=== PATIENT | female | born 1975 | race Caucasian/White ===

== ENCOUNTER 2024-04-22 03:49 | Outpatient (CLI) | payer BC, SELFPAY ==
[2024-04-24 10:11] LABS: TB Interpretation Negative (Negative); TB2 Ag minus Nil 0.01 IU/mL
== END 2024-04-22 03:50 | disposition home or self-care (01) ==
LOC: LBO 03:49
PROVIDERS: PCP Internal Medicine; Visit Provider Dermatology
DX: L40.0 Psoriasis vulgaris (principal); Z79.899 Other long term (current) drug therapy
CPT/HCPCS: 36415; 86480

== ENCOUNTER 2024-04-23 02:12 | Outpatient (CLI) | payer BC, SELFPAY ==
--- NOTE | 2024-04-23 12:46 | DI.MAMMO_ITS ---
Exam(s) MAMMO SCREENING EXAM: MAMMO SCREENING CLINICAL HISTORY: Baseline screening TECHNIQUE: Mammograms were interpreted according to the usual protocol including computer analysis w [employer] CAD system, tomosynthesis and C-view imaging. COMPARISON: No exams were available for comparison. Baseline examination. FINDINGS: The breasts are composed of scattered fibroglandular densities, Breast Density category B. No suspicious masses or suspicious microcalcifications are seen. No skin thickening or abnormal axillary lymph nodes are seen. IMPRESSION: BI-RADS Category 1, Negative mammogram Yearly screening mammography is recommended. Breast Density - Category B, scattered fibroglandular densities. A negative radiographic report should not delay biopsy if a dominant or clinically suspicious mass is present. Up to ten percent of cancers are not identified on mammography. A negative report may reinforce clinical impression. Adenosis and dense breasts may obscure an underlying neoplasm. False positive reports average 6 to 10%. Patient will receive a letter notifying them of these results.
== END 2024-04-23 02:32 ==
LOC: DI 02:12
PROVIDERS: PCP Internal Medicine; Visit Provider Nurse Practitioner Family
DX: Z12.31 Encounter for screening mammogram for malignant neoplasm of breast (principal); R92.323 Mammographic fibroglandular density, bilateral breasts
CPT/HCPCS: 77063; 77067

== ENCOUNTER 2025-01-28 17:01 | Outpatient (REF) | payer BC, SELFPAY | END 2025-01-28 17:02 | disposition home or self-care (01) | LOC: LBN 17:01 | PROVIDERS: PCP Nurse Practitioner Family; Visit Provider Obstetrics & Gynecology | DX: Z12.4 Encounter for screening for malignant neoplasm of cervix (principal) | CPT/HCPCS: 88142; 87624 ==

== ENCOUNTER 2025-02-25 07:38 | Day surgery (SDC) | payer BC, SELFPAY ==
[2025-02-25 07:50] VITALS: BP 110/71; PULSE 71; RESP 18; TEMP 36.4; O2SAT 97
[2025-02-25] MEDS: Lactated Ringers 1,000 ML 80 ML IV (08:18)
--- NOTE | 2025-02-25 08:48 | W.ANESPRE ---
General Info Date of Service Date Performed: 02/25/25 Height: 5 ft 4 in Weight: 76.1 kg Body Mass Index (BMI): 28.8 Surgical Procedure: Operation Date: 02/25/25 09:20 Proposed Procedure Side Surgeon teresa Bañuelos MD Meds Allergies and Home Medications Allergies Allergy/AdvReac Type Severity Reaction Status Date / Time No Known Allergies Allergy Verified 02/25/25 08:06 Home Medication Medication Instructions Recorded tirzepatide (weight loss) 10 10 mg subcut QWEEK 01/21/25 mg/0.5 mL subcutaneous solution (Zepbound) adalimumab 40 mg/0.4 mL 40 mg subcut QWEEK 01/28/25 subcutaneous pen kit copper 380 square mm intrauterine 1 device intrauterine ONCE 01/28/25 device (ParaGard T 380A) multivitamin (Multiple Vitamins 1 tab PO DAILY 01/28/25 tablet) oxybutynin chloride 5 mg tablet 5 mg PO DAILY 01/28/25 bisacodyl 5 mg tablet,delayed 5 mg PO ONCE #4 tabs 02/05/25 release (Dulcolax (bisacodyl)) polyethylene glycol 3350 17 17 g PO ONCE #238 grams 02/05/25 gram/dose oral powder Current Visit Medications: Current Medications Generic Name Dose Route Start Last Admin Trade Name Freq PRN Reason Stop Dose Admin Ringer's Solution 1,000 mls @ 80 mls/hr 02/25/25 06:00 02/25/25 08:18 IV 02/25/25 23:59 80 mls/hr INFUSION REESE Administration IV Miscellaneous Supplies 1 each 02/25/25 06:00 Iv Access IV 02/25/25 23:59 DIRECTED REESE Sodium Chloride 0 ml 02/25/25 06:00 Normal Saline Flush 10 Ml Syr IV 02/25/25 23:59 PRN PRN Sodium Chloride 0 ml 02/25/25 06:00 Normal Saline 10 Ml Vial IJ 02/25/25 23:59 DIRECTED PRN Sterile Water 0 ml 02/25/25 06:00 Water,Injection,Sterile 10 Ml Vial IJ 02/25/25 23:59 DIRECTED PRN PFSH Active Problems Active Problems: Problem Status Onset Code Contraception management Acute Z30.9 Anxiety Chronic F41.9 Obesity Chronic E66.9 Hidradenitis suppurativa Acute L73.2 Urinary urgency Acute R39.15 Abscess, axilla Acute L02.419 Vitamin D deficiency Acute E55.9 Medical History Medical History Constipation Tobacco Smoking/Tobacco Use Status: Former Tobacco Use Passive smoking exposure: No Alcohol Alcohol Intake: current Alcohol intake frequency: holidays/special occasions only Substance Use Substance use type: does not use Prental History History 0 Para Hx # Term Pregnancies Multiple births Hx # Pregnancies Ectopic pregnancies AB induced Hx Number of Living Children AB spontaneous Vital Signs and Lab Results Vital Signs Most Recent Vital Signs in EMR: Most Recent Vital Signs Temp Pulse Resp BP Pulse Ox 36.4 C L 71 18 110/71 97 02/25/25 07:50 02/25/25 07:50 02/25/25 07:50 02/25/25 07:50 02/25/25 07:50 Point of Care Results Point of Care Results: POC- Test(urine) Negative 02/25/25 08:12 Anesthesia Assessment and Plan Anesthesia History Personal History: No History of Anesthesia Complications Family History: No Family History of Anesthesia Complications Exercise Tolerance Exercise Tolerance: Metabolic Equivalents>4 Pertinent Negatives Pertinent Negatives: No Symptoms of GERD Cardiac & Pulmonary Exam Cardiac Exam: Normal S1/S2 Heart Sounds Pulmonary Exam: Clear Bilateral Breath Sounds Implantable Cardiac Device Does patient have a Pacemaker or an ICD?: No Airway Exam Known Difficult Airway: No Mallampati Class: 2 Mouth Opening: Normal (> 3cm) Thyromental Distance: Greater than 3 cm Neck Range of Motion: Full ROM Neck Circumference: Normal Teeth Condition: Normal Dentition ASA Classification ASA Score: ASA 2 Emergency Case?: No NPO Status NPO Status: NPO Clears >2 hours, Solids >8 hours Status Status: Negative HCG Anesthesia Plan Resuscitation Status: Full Code Anesthesia Technique: General Anesthesia Airway Planned: Natural Airway Monitors Used: Standard Monitors
[2025-02-25 08:49] VITALS: BMI 28.8
[2025-02-25 09:22] VITALS: BP 84/52; PULSE 81; RESP 14; TEMP 36.4; O2SAT 98
--- NOTE | 2025-02-25 09:24 | W.PM.DSUDISC ---
Date of service: 02/25/25 Discharge Plan Disposition Patient Disposition: Home Condition: Good Discharge Details Reason For Visit: Screening colonoscopy Attending Provider: Triny Bañuelos Primary Care Provider: No Dupont Home Meds and New Rx's Prescriptions: Continued Zepbound 10 mg/0.5 mL solution 10 mg subcut QWEEK multivitamin [Multiple Vitamins] Tablet 1 tab PO DAILY oxybutynin chloride 5 mg tablet 5 mg PO DAILY adalimumab 40 mg/0.4 mL pen injector kit 40 mg subcut QWEEK ParaGard T 380A 380 square mm intrauterine device 1 device intrauterine ONCE Rx Instructions: as a single dose Discontinued bisacodyl [Dulcolax (bisacodyl)] 5 mg tablet,delayed release (DR/EC) 5 mg PO ONCE Qty: 4 0RF Rx Instructions: Take per colonoscopy instructions provided by ordering providers office polyethylene glycol 3350 17 gram/dose powder 17 g PO ONCE Qty: 238 0RF Rx Instructions: Take per colonoscopy instructions provided by ordering providers office Discharge Instructions Additional Instructions: Your colonoscopy went well today. You did not have any evidence of polyps or abnormalities of the colon. The recommendation would be to have another colonoscopy in 10 yrs. Please contact the surgery office if you have any questions or concerns. 1. If tolerated, consume a soft, low fiber diet for 1-2 days. 2[address] Do not drive, drink alcohol, operate machinery, make critical decisions, or do activities that require coordination or balance for 24 hours. 3. Because air was put into your colon during the procedure, expelling air from your rectum (passing gas or farting) is normal. 4. You may not have a bowel movement for 1-3 days because of the colonoscopy prep. This is normal. 5. Go directly to the emergency room if you notice any of the following: Develop chills (warm to touch), or if you have a thermometer and your temperature is above 101 Difficulty breathing or difficultly swallowing Persistent vomiting Severe abdominal pain, other than gas cramps Severe chest pain Black, tarry stools Any bleeding – exceeding one tablespoon 6. Call your physician if the site where your intravenous was started becomes red, swollen, painful, and warm to touch. 7. Your physician has reviewed your pre-procedure medications. Please continue to take those medications as previously ordered. You will be given specific information/education regarding any changes to your medications before leaving. Stand Alone Forms: Anesthesia Discharge Inst., Colonoscopy Post Instructions, Richard Campbell ([facility]), Portal Information Activity:: Activity as Tolerated Diet:: As Tolerated Discharge Orders Discharge Orders: Discharge Order (Routine); Ordered 02/25/25 Ordered By: Triny Bañuelos
--- NOTE | 2025-02-25 09:26 | W.COLOREPORT ---
Date of service: 02/25/25 Time of Service: : Colonoscopy Report Date of procedure: 02/25/25 Pre-op diagnosis general: Screening colonoscopy Post-op diagnosis procedure note: same Procedure: Colonoscopy Surgeon: Triny Bañuelos Anesthesia Type: General:No Airway Estimated blood loss (mL): 0 Pathology: none sent Complications: None Disposition: PACU Indications: Patient is a 49 yo female who presents for her first screening colonoscopy. She denies a change in bowel habits or a family history of colon cancer. Prep: Miralax/Dulcolax Procedure Start Time: :02 Procedure End Time: :16 Retraction Time: 9 Findings: Normal screening colonoscopy. Procedure Description: Informed consent was obtained. The patient was taken to the endoscopy suite and placed in the left lateral decubitus position. After adequate intravenous sedation, digital rectal exam was performed, which was normal. A colonoscope was inserted into the rectum and easily negotiated to the cecum. The ileocecal valve and appendiceal orifice were identified. The entire colonic mucosa was then carefully circumferentially inspected upon slow withdrawal of the scope. The entire colon appeared normal. Retroflexion in the rectum was unremarkable. The patient tolerated the procedure well with no complications. Postoperatively, the patient was transferred to the recovery room in stable condition. Ancram Bowel Prep Ancram Bowel Prep Right Colon: 3 Left Colon: 3 Transverse Colon: 3 Total Score: 9
--- NOTE | 2025-02-25 09:32 | W.ANESPOSTOP ---
Postoperative Evaluation Date, Time and Location Date Performed: 02/25/25 Time Performed: 09:32 Patient Location: Day Surgery Unit Vital Signs Most Recent Imported Vital Signs: Most Recent Vital Signs Temp Pulse Resp BP Pulse Ox 36.4 C L 81 14 84/52 L 98 02/25/25 09:22 02/25/25 09:22 02/25/25 09:22 02/25/25 09:22 02/25/25 09:22 Pain Score Most Recent Pain Score: Most Recent Pain Score Pain Level 0 02/25/25 09:22 Assessment Mental Status: Awake (Alert & Oriented to Patient Baseline) Airway and Respiratory Function: Patent airway with normal (patient baseline) respiratory exam Cardiovascular Function: Hemodynamically Stable Hydration Status: Adequately Hydrated Nausea & Vomiting: No Nausea or Vomiting Pain: Pt. Denies Any Pain Peripheral Nerve Block: Patient did not receive a nerve block
[2025-02-25 09:47] VITALS: BP 95/63; PULSE 60; RESP 14; TEMP 26.1; O2SAT 98
== END 2025-02-25 09:52 | disposition home or self-care (01) ==
PROVIDERS: PCP Nurse Practitioner Family; Visit Provider Student in an Organized Health Care Education/Training Program
PROC: 0DJD8ZZ Inspection of Lower Intestinal Tract, Via Natural or Artificial Opening Endoscopic (ICD-10-PCS; CPT 45378; principal; 2025-02-25 09:15)
DX: Z12.11 Encounter for screening for malignant neoplasm of colon (principal)
CPT/HCPCS: 45378; 81025; J2003; J2704

== ENCOUNTER 2025-03-12 15:46 | Outpatient (REF) | payer BC, SELFPAY | END 2025-03-12 15:47 | disposition home or self-care (01) | LOC: LBN 15:46 | PROVIDERS: PCP Nurse Practitioner Family; Visit Provider Obstetrics & Gynecology | DX: R87.619 Unspecified abnormal cytological findings in specimens from cervix uteri (principal) | CPT/HCPCS: 88305 ==